=== PATIENT | male | born 1980 | race Asian ===

== ENCOUNTER 2018-03-16 11:48 | Emergency (ER) | payer OTHER ==
[2018-03-16] MEDS ORDERED: NS 500 ML IV ONE (12:17)
[2018-03-16 12:27] LABS: PLATELET COUNT 195 10^3/uL (150-400)
--- NOTE | 2018-03-16 14:40 | EDPHY ---
H & P Time Seen by Provider: 03/16/18 12:20 HPI/ROS: HPI Chest pains, tingling in left arm, head pain. 37-year-old male by private vehicle. 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 He reports that over the last 2 days he has had intermittent pinpoint sharp chest pains left anterior lower chest that, on for minutes at a time and then go away. He reports that he had these pains last night. He reports that when he went to bed he also felt a sensation of pain involving his left mid parietal scalp. He denies any rashes. He reports that when he woke up this morning he had a tingling sensation in his left upper extremity. He denies any of these symptoms currently. He otherwise has no past medical history. No significant cardiac risk factors. He does not smoke. No history of diabetes, hyperlipidemia, hypertension. No significant family history. ROS: Constitutional: No fever, no chills. No weakness. Eyes: No discharge. No changes in vision. ENT: No sore throat. No nasal congestion or rhinorrhea. Respiratory: No cough. No shortness of breath. Cardiac: As above, no palpitations. Gastrointestinal: No abdominal pain, no vomiting, no diarrhea. Genitourinary: No hematuria. No dysuria or increased frequency with urination. Musculoskeletal: No back pain. No neck pain. Denies any extremity pain. Skin: No rashes. Neurological: As above. No focal weakness. Past medical history: He denies any significant past medical or surgical history. 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 He does not smoke. Does not drink alcohol. He is here by himself. No IV drugs or street drugs. Physical Exam: General Appearance: Alert, no distress. This patient is responding to questions appropriately and in full sentences. This patient appears well- hydrated and well-nourished. Head: Normocephalic atraumatic. No rashes suggestive of zoster. Eyes: Pupils equal and round no pallor or injection. No lid edema, erythema or injection. Respiratory: There are no retractions, lungs are clear to auscultation with good air movement bilaterally. Cardiovascular: Regular rate and rhythm. No murmur. Gastrointestinal: Abdomen is soft and nontender, no masses, bowel sounds normal. No focal tenderness at McBurney's point. No Perdue sign. Neurological: Motor sensory function is grossly intact in all 4 extremities. Specifically he is neurologically intact in all myotomes in dermatomes of the left upper extremity. Cranial nerves are normal. Gait is normal. Skin: Warm and dry, no rashes. Musculoskeletal: Neck is supple and nontender. No pain on flexion of his neck. No suboccipital tenderness on palpation. No lateral soft tissue neck tenderness on palpation. Extremities are symmetrical. All joints range without pain or impingement. Psychiatric: No agitation. No depression. Database: EKG: EKG time is 12:02 p.m.; EKG shows a narrow complex normal sinus rhythm with a ventricular rate of 89. The TX, QRS, QT intervals are within normal limits. There are no ST-T wave changes indicative of ischemic or injury pattern. No evidence of right heart strain. Interpreted by me. Imaging: MRI of brain without contrast: Negative. Results were discussed with staff radiologist Dr. Brenton Costello. MRI of cervical spine without contrast: Negative for any significant acute pathology. Results were discussed with staff radiologist Dr. Brenton Costello. Chest x-ray AP portable; the cardiac mediastinal silhouette is unremarkable. No evidence of infiltrate or pneumothorax. No acute cardiopulmonary disease process noted. Interpreted by me. Procedures: Emergency department course: Triage vital signs reviewed. He is moderately hypertensive. Vital signs are otherwise normal. He is afebrile. IV was placed. EKG obtained and reviewed by myself. Discussed MR imaging given the patient's symptoms as noted above. He agrees. 2:35 p.m., the patient was re-evaluated. Resting comfortably at this time. Repeat neurologic Assessment is nonfocal. Results of his emergency department workup were discussed with him in detail. He is asymptomatic and has remained asymptomatic while in the emergency department. The patient feels comfortable being discharged at this time. Follow-up and return to emergency department precautions have been reviewed with him. All of his questions were answered. The patient was discharged from the emergency department in good condition. Heart score is 0. Differential Diagnosis: The differential diagnosis on this patient includes but is not limited to anxiety/stress related reaction, prodromal shingles, musculoskeletal chest pain. Acute coronary syndrome, pulmonary embolism, CVA, MS, cervical radiculopathy, pneumothorax, pericarditis, myocarditis, tick-borne illness, vertebral artery dissection, carotid artery dissection unlikely. This represents a partial list of diagnoses considered. These considerations are based on history, physical exam, past history, reassessment and diagnostic testing. Smoking Status: Never smoked Constitutional: Initial Vital Signs Temperature (C) 36.7 C 03/16/18 11:51 Heart Rate 82 03/16/18 11:51 Respiratory Rate 17 03/16/18 11:51 Blood Pressure 148/104 H 03/16/18 11:51 O2 Sat (%) 97 03/16/18 11:51 O2 Delivery Mode Room Air Allergies/Adverse Reactions: No Known Allergies Allergy (Verified 03/16/18 11:50) Home Medications: Medication Instructions Recorded NK [No Known Home Meds] 03/16/18 Medical Decision Making - Data Points Laboratory Results: Laboratory Results 03/16/18 12:00 03/16/18 12:00 Medications Given: Discontinued Medications Sodium Chloride (Ns) 500 mls @ 1,000 mls/hr IV EDNOW ONE PRN Reason: Protocol Stop: 03/16/18 12:46 Last Admin: 03/16/18 13:44 Dose: 500 mls Point of Care Test Results: Chemistry 03/16/18 12:10 POC Troponin I 0.00 ng/mL ng/mL (0.00-0.08) Departure - Departure Disposition: Home, Routine, Self-Care Clinical Impression: Chest discomfort, Paresthesia of left upper extremity, Headache Condition: Good Instructions: Chest Pain (ED), Paresthesia (ED) Additional Instructions: Read and follow provided instructions. Follow-up with your primary care physician at the [facility] on Sunday or Sunday for re-evaluation as discussed. Return to the emergency department for worsening symptoms, worsening or persist chest pain, shortness of breath, loss of sensation or weakness in your extremities or other serious concerns. Referrals: NONE *PRIMARY CARE P,. [Primary Care Provider] - As per Instructions
[2018-03-16 15:06] VITALS: BP 140/80
--- NOTE | 2018-03-16 15:29 | CPEKG ---
Test Reason : OPEN Blood Pressure : / mmHG Vent. Rate : 089 BPM Atrial Rate : 089 BPM P-R Int : 147 ms QRS Dur : 091 ms QT Int : 355 ms P-R-T Axes : 082 028 061 degrees QTc Int : 432 ms Sinus rhythm Confirmed by Joanna Shipley ([id number]) on 03/16/2018 3:28:43 PM Referred By: Confirmed By:Joanna Shipley
== END 2018-03-16 15:06 | disposition home or self-care (01) ==
DX: R07.9 Chest pain, unspecified (principal); R51 Headache; R20.2 Paresthesia of skin; E86.9 Volume depletion, unspecified
CPT/HCPCS: 84484-PO

== ENCOUNTER 2018-04-12 16:51 | Emergency (ER) | payer OTHER ==
[2018-04-12 17:41] LABS: PLATELET COUNT 210 10^3/uL (150-400)
--- NOTE | 2018-04-12 18:05 | EDPHY ---
H & P Stated Complaint: cp Time Seen by Provider: 04/12/18 17:08 HPI/ROS: CHIEF COMPLAINT: chest pain HISTORY OF PRESENT ILLNESS: 37-year-old male presents with chest pain. Onset of sharp and stabbing left-sided chest pain yesterday. The pain is moderate, lasts several seconds and then completely resolves. Multiple similar episodes yesterday, but then resolved by the evening. Similar episode started this afternoon. No change with exertion, shortness of breath, dizziness, cough, recent URI. Cardiac risk factors positive for hyperlipidemia. Nonsmoker; no family history ; no hypertension, diabetes. REVIEW OF SYSTEMS: complete 10 point ROS reviewed and is negative except for the noted elements in the HPI - Personal History Current Tetanus/Diphtheria Vaccine: Unsure Current Tetanus Diphtheria and Acellular Pertussis (TDAP): Unsure - Medical/Surgical History Hx Asthma: No Hx Chronic Respiratory Disease: No Hx Diabetes: No Hx Cardiac Disease: No Hx Renal Disease: No Hx Cirrhosis: No Hx Alcoholism: No Hx HIV/AIDS: No Hx Splenectomy or Spleen Trauma: No Other PMH: PMH: hyperlipidemia. PSH: denies - Social History Smoking Status: Never smoked - Physical Exam Exam: General Appearance: Alert, pleasant Eyes: Pupils equal and round, no conjunctival pallor or injection ENT, Mouth: Mucous membranes moist Neck: Normal inspection Respiratory: Point tenderness left anterior chest wall, lungs are clear to auscultation Cardiovascular: Regular rate and rhythm Gastrointestinal: Abdomen is soft and nontender Neurological: A&O, nonfocal, normal gait Skin: Warm and dry, no rash Extremities: Normal inspection, no tenderness Psychiatric: Mood and affect normal Constitutional: Initial Vital Signs Temperature (C) 36.7 C 04/12/18 16:58 Heart Rate 82 04/12/18 16:58 Respiratory Rate 16 04/12/18 16:58 Blood Pressure 163/101 H 04/12/18 16:58 O2 Sat (%) 98 04/12/18 16:58 O2 Delivery Mode Room Air Allergies/Adverse Reactions: No Known Allergies Allergy (Verified 04/12/18 16:58) Home Medications: Medication Instructions Recorded NK [No Known Home Meds] 03/16/18 Medical Decision Making - Diagnostics EKG Interpretation: EKG interpreted by me reveals normal sinus rhythm, rate 88, no ST or T segment changes. Interpretation: Normal EKG Imaging Results: Chest X-Ray 04/12/18 17:08 Impression: Mild peribronchial thickening suggesting airways disease/bronchitis. Imaging: I viewed and interpreted images myself ED Course/Re-evaluation: This patient presents with sharp and stabbing left-sided chest pain. Stat EKG reveals no evidence of ischemia or dysrhythmia and chest x-ray is unremarkable. Clinical presentation consistent with chest wall pain. Toradol 15 mg IV given. Normal troponin, normal EKG and atypical pain; heart score 0. I do not feel that further ED eval is indicated for ACS. d/w pt, concurs with this decision. PERC score 0; can safely exclude PE. Warning signs discussed Differential Diagnosis: Differential diagnosis includes though it is not limited to pneumonia, pneumothorax, pulmonary embolism, aortic dissection, pericarditis, acute coronary syndrome. - Data Points Laboratory Results: Laboratory Results 04/12/18 17:05 04/12/18 17:05 Medications Given: Discontinued Medications Ketorolac Tromethamine (Toradol) 15 mg IVP EDNOW ONE Stop: 04/12/18 18:11 Last Admin: 04/12/18 18:17 Dose: Not Given Point of Care Test Results: Chemistry 04/12/18 17:12 POC Troponin I 0.00 ng/mL ng/mL (0.00-0.08) Departure - Departure Disposition: Home, Routine, Self-Care Clinical Impression: Chest wall pain Condition: Good Instructions: Chest Pain (ED) Additional Instructions: Ibuprofen 600 mg 3 times daily while the pain persists. Referrals: [facility] [Other] - 3-4 days, if not improved
[2018-04-12] MEDS ORDERED: KETOROLAC 15 MG/1 ML SDV IVP ONE (18:10)
[2018-04-12 18:18] VITALS: BP 128/77
== END 2018-04-12 18:18 | disposition home or self-care (01) ==
DX: R07.89 Other chest pain (principal); E78.5 Hyperlipidemia, unspecified
CPT/HCPCS: 84484-PO

== ENCOUNTER → 2018-08-27 | Outpatient (CLI) | payer OTHER | LOC: FIMAGING 16:13 | PROVIDERS: ATTEND Physician Assistant Medical | DX: N50.9 Disorder of male genital organs, unspecified (principal); L72.9 Follicular cyst of the skin and subcutaneous tissue, unspecified; N43.3 Hydrocele, unspecified ==

== ENCOUNTER → 2018-09-18 | Outpatient (CLI) | payer OTHER ==
[~2018-09-18] MED LIST: IOPAMIDOL (ISOVUE 370) 100 ML BTL IV ONE; METOPROLOL TARTRATE 5 MG/5 ML INJ ONE
== END ==
LOC: FIMAGING 12:17
PROVIDERS: ATTEND Internal Medicine Cardiovascular Disease
DX: I25.10 Atherosclerotic heart disease of native coronary artery without angina pectoris (principal)
CPT/HCPCS: Q9967